=== PATIENT | female | born 1980 | race Two or more races ===

== ENCOUNTER 2018-06-28 09:52 | Outpatient (CLI) | payer OTHER | END 2018-06-28 09:55 | disposition home or self-care (01) | LOC: RAD 09:52 | DX: M54.2 Cervicalgia (principal); M54.6 Pain in thoracic spine; M54.5 Low back pain; M41.26 Other idiopathic scoliosis, lumbar region; M25.511 Pain in right shoulder ==

== ENCOUNTER 2024-11-10 05:31 | Day surgery (SDC) | payer OTHER ==
[2024-11-10] MEDS ORDERED: CHLORHEXIDINE GLUCONATE 120 ML BOTTLE TOP ONE (09:30)
[2024-11-10] MEDS ORDERED: ONDANSETRON HCL 2 MG/ML VIAL IV ONE (09:45)
[2024-11-10] MEDS ORDERED: KETOROLAC TROMETHAMINE 30 MG VIAL IV ONE (09:45)
[2024-11-10] MEDS ORDERED: KETOROLAC TROMETHAMINE 30 MG VIAL ONE (10:47)
== END 2024-11-10 15:05 | disposition home or self-care (01) ==
LOC: O/R 05:31 → SURH 05:31 → CIR.AMB 05:31 → SURH 08:45 → EDSTATUS 08:45 → CIR.AMB 15:05 → O/R 15:05
PROVIDERS: ATTEND Obstetrics & Gynecology
DX: N84.0 Polyp of corpus uteri (principal); N93.8 Other specified abnormal uterine and vaginal bleeding; Z91.041 Radiographic dye allergy status